=== PATIENT | female | born 1975 | race Caucasian/White ===

== ENCOUNTER → 2021-12-27 | Day surgery (SDC) | payer OTHER | END | disposition home or self-care (01) | LOC: JRADIR 09:58 | PROVIDERS: ATTEND Internal Medicine Geriatric Medicine | PROC: 0G9G3ZX Drainage of Left Thyroid Gland Lobe, Percutaneous Approach, Diagnostic (ICD-10-PCS; principal; 2021-12-27) | DX: E04.1 Nontoxic single thyroid nodule (principal) | CPT/HCPCS: 10005; 76942; 88173; 88305-TC ==